=== PATIENT | male | born 1990 | race Caucasian/White ===

== ENCOUNTER 2024-10-14 14:12 | Emergency (ER) | payer BC ==
[~2024-10-14] VITALS: Ht 152.4 cm; Wt 57.2 kg
[2024-10-14 14:17] VITALS: O2SAT 98
[2024-10-14 14:31] VITALS: BP 130/73; PULSE 72; RESP 18; TEMP 36.7; O2SAT 99
[2024-10-14 14:53] VITALS: TEMP 98.1
[2024-10-14] MEDS: ONDANSETRON HCL 4MG TABLET PO ONE (14:53)
[2024-10-14] MEDS: ACETAMINOPHEN 325MG TABLET PO ONE (14:53)
== END 2024-10-14 16:15 | disposition left against medical advice (07) ==
LOC: ER 14:12
DX: S06.0X0A Concussion without loss of consciousness, initial encounter (principal); S00.81XA Abrasion of other part of head, initial encounter; F14.90 Cocaine use, unspecified, uncomplicated; Z88.0 Allergy status to penicillin; V00.841A Fall from standing electric scooter, initial encounter; Y93.89 Activity, other specified; Y92.89 Other specified places as the place of occurrence of the external cause; Y99.8 Other external cause status
CPT/HCPCS: 99284; 70450; Q0162